=== PATIENT | female | born 2000 | race Hispanic/Latino ===

== ENCOUNTER 2023-02-16 12:23 | Emergency (ER) | payer OTHER ==
[~2023-02-16] VITALS: Ht 162.6 cm; Wt 60.8 kg
[2023-02-16 12:25] VITALS: PULSE 79
[2023-02-16] MEDS ORDERED: CYCL-309 PO (14:47)
[2023-02-16] MEDS ORDERED: IBUP-2070 PO (14:47)
[2023-02-16 15:00] VITALS: BP 123/59; RESP 18; O2SAT 99
== END 2023-02-16 15:14 | disposition home or self-care (01) ==
LOC: EDH 12:23
DX: S60.052A Contusion of left little finger without damage to nail, initial encounter (principal); F43.9 Reaction to severe stress, unspecified; V89.2XXA Person injured in unspecified motor-vehicle accident, traffic, initial encounter; Y93.89 Activity, other specified; Y92.89 Other specified places as the place of occurrence of the external cause; Y99.8 Other external cause status
CPT/HCPCS: 73130